=== PATIENT | female | born 1980 | race Caucasian/White ===

== ENCOUNTER 2017-11-10 13:25 | Emergency (ER) | payer MEDICARE, MEDICAID, SELFPAY ==
[2017-11-10 14:42] VITALS: BP 178/103; PULSE 86; RESP 18; TEMP 36.7; O2SAT 100; BMI 52.4
--- NOTE | 2017-11-10 15:55 | ED.PREGNANCY ---
HPI - <Roseline Cat PA-C - Last Filed: 11/10/17 22:35> General Chief complaint: OB/Uterine Contractions Stated complaint: 8wks and bleeding Time Seen by Provider: 11/10/17 15:54 Source: patient Mode of arrival: ambulatory Limitations: no limitations History of Present Illness HPI Narrative: This 37-year-old female comes to the ED due to and a mild abdominal/pelvic pressure sensation. She states that she is between 6 and 8 weeks , cannot remember when her last period was. She noted a small tinge of blood on toilet paper when she wiped this morning, then when she urinated this afternoon noted more blood when she wiped. She has not noted bleeding otherwise. She states for the last couple of days, she has actually had less nausea than usual with her . She describes a ???slight discomfort??? in the abdominal/pelvic area, not pain or cramps, but not quite typical. She has not had any vomiting today. She is not having any fever and has not had any recent illness. No new swelling and feeling otherwise okay, eating and drinking normally. She does have a history of lupus and 1 previous spontaneous , 2 term pregnancies Related Data Home Medications Medication Instructions Recorded Confirmed PNV cmb#95-ferrous fumarate-FA 1 tab PO DAILY 11/10/17 11/10/17 [] furosemide 2 tab PO DAILY 11/10/17 11/10/17 levothyroxine 1 tab PO DAILY 11/10/17 11/10/17 Allergies Allergy/AdvReac Type Severity Reaction Status Date / Time latex [LATEX] Allergy Unknown Rash Verified 11/10/17 14:46 Review of Systems <Roseline Cat PA-C - Last Filed: 11/10/17 22:35> Review of Systems All systems reviewed & are unremarkable except as noted in HPI and below PMFSH - <Roseline Cat PA-C - Last Filed: 11/10/17 22:35> Past Medical History Medical history: 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), thyroid disease and other Lupus Surgical history: 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) 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 HEENT: PERRL, EOMI NECK: Supple LUNGS: Clear to auscultation bilaterally. HEART: Rate and rhythm regular, normal S1 and S2, no S3 or S4. ABDOMEN: Soft, nontender, nondistended, bowel sounds present x 4 quadrants, no masses palpable EXTREMITIES: No edema, no cyanosis DERMATOLOGIC: No jaundice or exanthem NEUROLOGIC: Alert and oriented with normal speech and coordination : Normal external genitalia. There is a small amount of dark blood at the os. It is difficult to visualize fully due to body habitus, closed from what I can visualize. No palpable mass, CMT, uterine or adnexal tenderness Initial Vital Signs Initial Vital Signs: Vital Signs Temperature 98.1 F 11/10/17 14:42 Pulse Rate 86 11/10/17 14:42 Respiratory Rate 18 11/10/17 14:42 Blood Pressure 178/103 H 11/10/17 14:42 Pulse Oximetry 100 11/10/17 14:42 <DO Carrie Chua Last Filed: 11/11/17 07:50> Initial Vital Signs Initial Vital Signs: Vital Signs Temperature 98.1 F 11/10/17 14:42 Pulse Rate 86 11/10/17 14:42 Respiratory Rate 18 11/10/17 14:42 Blood Pressure 178/103 H 11/10/17 14:42 Pulse Oximetry 100 11/10/17 14:42 Course <Roseline Cat PA-C - Last Filed: 11/10/17 22:35> Orders Ordered: ED Orders 11/10/17 14:47 Urine Microscopic Stat 11/10/17 16:17 US OB <= 14 weeks fetus Stat 11/10/17 16:24 HCG Quantitative Stat Vital Signs - 8 hr 11/10/17 14:42 Temperature 98.1 F Pulse Rate 86 Respiratory Rate 18 Blood Pressure 178/103 H Pulse Oximetry 100 <DO Carrie Chua Last Filed: 11/11/17 07:50> Orders Ordered: ED Orders 11/10/17 14:47 Urine Microscopic Stat 11/10/17 16:17 US OB <= 14 weeks fetus Stat 11/10/17 16:24 HCG Quantitative Stat Vital Signs - 8 hr 11/10/17 14:42 Temperature 98.1 F Pulse Rate 86 Respiratory Rate 18 Blood Pressure 178/103 H Pulse Oximetry 100 MDM - OB/Uterine Contractions <Roseline Cat PA-C - Last Filed: 11/10/17 22:35> Lab Data Attestation: I reviewed the patient's lab results. Quantitative HCG 12,769 Lab Results 11/10/17 11/10/17 Range/Units 14:47 16:24 HCG, Quant [id number] mIU/mL Urine RBC 0-1/hpf (0-5/HPF) Urine WBC 0-1/hpf (0-5/HPF) Ur Squamous Epith Cells 1-5 /hpf Urine Bacteria Occasional (0-1) (None) Ur Culture Indicated? Cult not indicated Micro UA Comment Not Reportable Imaging Data US - abdomen: Radiologist's impression: View Report History [address] [address] Ultrasound Report Signed Patient: Leonor Castillo MR#: [id number] : 1980 Acct:[id number] Age/Sex: 37 / F Date of Service: 11/10/17 Loc: ED Accession Number: [id number] Procedure: US OB <= 14 weeks fetus Ordering Provider: Roseline Cat P.A-C PROCEDURE: US OB <= 14 WEEKS FETUS INDICATIONS: spotting, 6-8 wks OUTSIDE/PRIOR DATING DATA: Last menstrual period (LMP): Unknown. LMP-based estimated date of delivery (TANISHA): Not applicable. First dating scan (date and location): 11.10.17 [facility]. Estimated date of delivery (TANISHA) from first dating scan: 07.06.18. TECHNIQUE: Real-time scanning was performed of the fetus and maternal pelvic organs, with image documentation. COMPARISON: None. FINDINGS: Embryo: Intrauterine hypoechoic focus measuring 12 mm is present, corresponding to a 6 week 0 day gestation. No cardiac activity is seen. Measurement variability in dating: +/- 4 weeks by LMP, +/- 7 days by mean sac diameter (use before 6 weeks gestation if crown-rump length not able to be measured), +/- 5 days by crown-rump length (up to 8 weeks 6 days gestation), +/- 7 days by crown-rump length (up to 13 weeks 6 days gestation). Maternal organs: Left ovarian cyst is present. Right adnexa within normal limits. Limited images through the kidneys demonstrate no hydronephrosis. IMPRESSION: 1. Findings consistent with a single intrauterine gestation at 6 weeks 0 days. Routine clinical and sonographic followup is recommended to document viability. Dictated by: Ophelia Colon M.D. on 11/10/2017 at 17:43 Approved by: Ophelia Colon M.D. on 11/10/2017 at 17:45 <Atif Gonzalez DO - Last Filed: 11/11/17 07:50> Lab Data Lab Results 11/10/17 11/10/17 Range/Units 14:47 16:24 HCG, Quant [id number] mIU/mL Urine RBC 0-1/hpf (0-5/HPF) Urine WBC 0-1/hpf (0-5/HPF) Ur Squamous Epith Cells 1-5 /hpf Urine Bacteria Occasional (0-1) (None) Ur Culture Indicated? Cult not indicated Micro UA Comment Not Reportable Discharge Plan Departure Patient Disposition: Home, Self-Care Clinical Impression: Vaginal bleeding in Discharge Date/Time: 11/10/17 18:28 Interventions: ED Discharge Assessment Last Done: 11/10/17 18:22 Instructions: DI for Vaginal Bleeding During Activity Restrictions/Additional Instructions: Return to the closest ED as we talked about if you have any acutely worsening symptoms. Otherwise, you should call your theoretical physicist 1st thing tomorrow and be seen for follow-up. Your hormone level and ultrasound today looked typical for about a 6 week , however you need to be monitored closely. This bleeding may be normal but it can sometimes be a sign of early miscarriage as well. You were noted to have a cyst on your ovary today as well but that does not seem to be causing any problem or discomfort. Prescriptions: No Action furosemide 40 mg tablet 2 tab PO DAILY RF: 0 levothyroxine 200 mcg tablet 1 tab PO DAILY RF: 0 PNV cmb#95-ferrous fumarate-FA [] 28 mg iron- 800 mcg Tablet 1 tab PO DAILY RF: 0 Referrals: [facility] [Other] <Atif Gonzalez DO - Last Filed: 11/11/17 07:50> Cosign ED Attending Cosignature Attestation: I was available for consultation during this patient's emergency department encounter
--- NOTE | 2017-11-10 15:59 | ED_ITS ---
HPI - <Roseline Cat PA-C - Last Filed: 11/10/17 22:35> General Chief complaint: OB/Uterine Contractions Stated complaint: 8wks and bleeding Time Seen by Provider: 11/10/17 15:54 Source: patient Mode of arrival: ambulatory Limitations: no limitations History of Present Illness HPI Narrative: This 37-year-old female comes to the ED due to and a mild abdominal/pelvic pressure sensation. She states that she is between 6 and 8 weeks , cannot remember when her last period was. She noted a small tinge of blood on toilet paper when she wiped this morning, then when she urinated this afternoon noted more blood when she wiped. She has not noted bleeding otherwise. She states for the last couple of days, she has actually had less nausea than usual with her . She describes a ?slight discomfort? in the abdominal/pelvic area, not pain or cramps, but not quite typical. She has not had any vomiting today. She is not having any fever and has not had any recent illness. No new swelling and feeling otherwise okay, eating and drinking normally. She does have a history of lupus and 1 previous spontaneous , 2 term pregnancies Related Data Home Medications Medication Instructions Recorded Confirmed PNV cmb#95-ferrous fumarate-FA 1 tab PO DAILY 11/10/17 11/10/17 [] furosemide 2 tab PO DAILY 11/10/17 11/10/17 levothyroxine 1 tab PO DAILY 11/10/17 11/10/17 Allergies Allergy/AdvReac Type Severity Reaction Status Date / Time latex [LATEX] Allergy Unknown Rash Verified 11/10/17 14:46 Review of Systems <Roseline Cat PA-C - Last Filed: 11/10/17 22:35> Review of Systems All systems reviewed & are unremarkable except as noted in HPI and below PMFSH - <Roseline Cat PA-C - Last Filed: 11/10/17 22:35> Past Medical History Medical history: 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), thyroid disease and other Lupus Surgical history: 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) 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 HEENT: PERRL, EOMI NECK: Supple LUNGS: Clear to auscultation bilaterally. HEART: Rate and rhythm regular, normal S1 and S2, no S3 or S4. ABDOMEN: Soft, nontender, nondistended, bowel sounds present x 4 quadrants, no masses palpable EXTREMITIES: No edema, no cyanosis DERMATOLOGIC: No jaundice or exanthem NEUROLOGIC: Alert and oriented with normal speech and coordination : Normal external genitalia. There is a small amount of dark blood at the os. It is difficult to visualize fully due to body habitus, closed from what I can visualize. No palpable mass, CMT, uterine or adnexal tenderness Initial Vital Signs Initial Vital Signs: Vital Signs Temperature 98.1 F 11/10/17 14:42 Pulse Rate 86 11/10/17 14:42 Respiratory Rate 18 11/10/17 14:42 Blood Pressure 178/103 H 11/10/17 14:42 Pulse Oximetry 100 11/10/17 14:42 <DO Carrie Chua Last Filed: 11/11/17 07:50> Initial Vital Signs Initial Vital Signs: Vital Signs Temperature 98.1 F 11/10/17 14:42 Pulse Rate 86 11/10/17 14:42 Respiratory Rate 18 11/10/17 14:42 Blood Pressure 178/103 H 11/10/17 14:42 Pulse Oximetry 100 11/10/17 14:42 Course <Roseline Cat PA-C - Last Filed: 11/10/17 22:35> Orders Ordered: ED Orders 11/10/17 14:47 Urine Microscopic Stat 11/10/17 16:17 US OB <= 14 weeks fetus Stat 11/10/17 16:24 HCG Quantitative Stat Vital Signs - 8 hr 11/10/17 14:42 Temperature 98.1 F Pulse Rate 86 Respiratory Rate 18 Blood Pressure 178/103 H Pulse Oximetry 100 <DO Carrie Chua Last Filed: 11/11/17 07:50> Orders Ordered: ED Orders 11/10/17 14:47 Urine Microscopic Stat 11/10/17 16:17 US OB <= 14 weeks fetus Stat 11/10/17 16:24 HCG Quantitative Stat Vital Signs - 8 hr 11/10/17 14:42 Temperature 98.1 F Pulse Rate 86 Respiratory Rate 18 Blood Pressure 178/103 H Pulse Oximetry 100 MDM - OB/Uterine Contractions <Roseline Cat PA-C - Last Filed: 11/10/17 22:35> Lab Data Attestation: I reviewed the patient's lab results. Quantitative HCG 12,769 Lab Results 11/10/17 11/10/17 Range/Units 14:47 16:24 HCG, Quant [id number] mIU/mL Urine RBC 0-1/hpf (0-5/HPF) Urine WBC 0-1/hpf (0-5/HPF) Ur Squamous Epith Cells 1-5 /hpf Urine Bacteria Occasional (0-1) (None) Ur Culture Indicated? Cult not indicated Micro UA Comment Not Reportable Imaging Data US - abdomen: Radiologist's impression: View Report History [address] [address] Ultrasound Report Signed Patient: Leonor Castillo MR#: [id number] : 1980 Acct:[id number] Age/Sex: 37 / F Date of Service: 11/10/17 Loc: ED Accession Number: [id number] Procedure: US OB <= 14 weeks fetus Ordering Provider: Roseline Cat P.A-C PROCEDURE: US OB <= 14 WEEKS FETUS INDICATIONS: spotting, 6-8 wks OUTSIDE/PRIOR DATING DATA: Last menstrual period (LMP): Unknown. LMP-based estimated date of delivery (TANISHA): Not applicable. First dating scan (date and location): 11.10.17 [facility]. Estimated date of delivery (TANISHA) from first dating scan: 07.06.18. TECHNIQUE: Real-time scanning was performed of the fetus and maternal pelvic organs, with image documentation. COMPARISON: None. FINDINGS: Embryo: Intrauterine hypoechoic focus measuring 12 mm is present, corresponding to a 6 week 0 day gestation. No cardiac activity is seen. Measurement variability in dating: +/- 4 weeks by LMP, +/- 7 days by mean sac diameter (use before 6 weeks gestation if crown-rump length not able to be measured), +/ - 5 days by crown-rump length (up to 8 weeks 6 days gestation), +/- 7 days by crown-rump length (up to 13 weeks 6 days gestation). Maternal organs: Left ovarian cyst is present. Right adnexa within normal limits. Limited images through the kidneys demonstrate no hydronephrosis. IMPRESSION: 1. Findings consistent with a single intrauterine gestation at 6 weeks 0 days. Routine clinical and sonographic followup is recommended to document viability. Dictated by: Ophelia Colon M.D. on 11/10/2017 at 17:43 Approved by: Ophelia Colon M.D. on 11/10/2017 at 17:45 <Atif Gonzalez DO - Last Filed: 11/11/17 07:50> Lab Data Lab Results 11/10/17 11/10/17 Range/Units 14:47 16:24 HCG, Quant 10400 mIU/mL Urine RBC 0-1/hpf (0-5/HPF) Urine WBC 0-1/hpf (0-5/HPF) Ur Squamous Epith Cells 1-5 /hpf Urine Bacteria Occasional (0-1) (None) Ur Culture Indicated? Cult not indicated Micro UA Comment Not Reportable Discharge Plan Departure Patient Disposition: Home, Self-Care Clinical Impression: Vaginal bleeding in Discharge Date/Time: 11/10/17 18:28 Interventions: ED Discharge Assessment Last Done: 11/10/17 18:22 Instructions: DI for Vaginal Bleeding During Activity Restrictions/Additional Instructions: Return to the closest ED as we talked about if you have any acutely worsening symptoms. 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 Your hormone level and ultrasound today looked typical for about a 6 week , however you need to be monitored closely. This bleeding may be normal but it can sometimes be a sign of early miscarriage as well. You were noted to have a cyst on your ovary today as well but that does not seem to be causing any problem or discomfort. Prescriptions: No Action furosemide 40 mg tablet 2 tab PO DAILY RF: 0 levothyroxine 200 mcg tablet 1 tab PO DAILY RF: 0 PNV cmb#95-ferrous fumarate-FA [] 28 mg iron- 800 mcg Tablet 1 tab PO DAILY RF: 0 Referrals: [facility] [Other] <Atif Gonzalez DO - Last Filed: 11/11/17 07:50> Cosign ED Attending Brandonature Attestation: I was available for consultation during this patient's emergency department encounter
--- NOTE | 2017-11-10 16:17 | DI.US.S_ITS ---
PROCEDURE: US OB <= 14 WEEKS FETUS INDICATIONS: spotting, 6-8 wks OUTSIDE/PRIOR DATING DATA: Last menstrual period (LMP): Unknown. LMP-based estimated date of delivery (TANISHA): Not applicable. First dating scan (date and location): 11.10.17 [facility]. Estimated date of delivery (TANISHA) from first dating scan: 07.06.18. TECHNIQUE: Real-time scanning was performed of the fetus and maternal pelvic organs, with image documentation. COMPARISON: None. FINDINGS: Embryo: Intrauterine hypoechoic focus measuring 12 mm is present, corresponding to a 6 week 0 day gestation. No cardiac activity is seen. Measurement variability in dating: +/- 4 weeks by LMP, +/- 7 days by mean sac diameter (use before 6 weeks gestation if crown-rump length not able to be measured), +/- 5 days by crown-rump length (up to 8 weeks 6 days gestation), +/- 7 days by crown-rump length (up to 13 weeks 6 days gestation). Maternal organs: Left ovarian cyst is present. Right adnexa within normal limits. Limited images through the kidneys demonstrate no hydronephrosis. IMPRESSION: 1. Findings consistent with a single intrauterine gestation at 6 weeks 0 days. Routine clinical and sonographic followup is recommended to document viability. Dictated by: Ophelia Colon M.D. on 11/10/2017 at 17:43 Approved by: Ophelia Colon M.D. on 11/10/2017 at 17:45
[2017-11-10 18:04] LABS: Bacteria Urine Occasional (0-1); Culture Indicated Urine Cult Not Indicated; RBC Urine 0-1/HPF (0-5/HPF); Squamous Epithelial Cell Urine 1-5 /HPF; WBC Urine 0-1/HPF (0-5/HPF)
[2017-11-11 16:51] LABS: HCG Quantitative /Beta subunit 12769 mIU/mL
== END 2017-11-10 18:28 | disposition home or self-care (01) ==
PROVIDERS: Emergency Provider Internal Medicine
DX: O46.90 Antepartum hemorrhage, unspecified, unspecified trimester (principal); Z3A.01 Less than 8 weeks gestation of pregnancy
CPT/HCPCS: 36415; 76801; 76817; 81003; 81015; 81025; 84702; 99283; 99284

== ENCOUNTER 2017-11-26 18:38 | Emergency (ER) | payer MEDICARE, MEDICAID, SELFPAY ==
[2017-11-26 18:54] VITALS: BP 157/99; PULSE 81; RESP 16; TEMP 36.6; O2SAT 100; BMI 52.4
--- NOTE | 2017-11-26 19:40 | ED.PREGNANCY ---
HPI - <ORLY Mata - Last Filed: 11/26/17 21:11> General Chief complaint: OB/Uterine Contractions Stated complaint: 8WKS AND EXPERIENCING BLEEDING Time Seen by Provider: 11/26/17 19:30 Source: patient Mode of arrival: ambulatory Limitations: no limitations History of Present Illness HPI Narrative: pt says she was here about 2 weeks ago for same thing, no f/u yet, her ob won't see her until she is further along MD Complaint: vaginal bleeding Onset (ago): day(s) (yesterday) Pain Consistency: other (no pain) Relieving factors: none Exacerbating factors: none Associated symptoms: denies other symptoms Vaginal discharge: none Vaginal bleeding: light (bright red, spotting, only sees it when she wipes) Hx Last Menstrual Period: about 8 wks ago Patient : Yes Number of Weeks : 8 OB History - Current : no complications OB History - Previous Pregnancies: no complications care: none (first appt in 2 wks) Related Data : 5 Para: 4 Home Medications Medication Instructions Recorded Confirmed PNV cmb#95-ferrous fumarate-FA 1 tab PO DAILY 11/10/17 11/10/17 [] furosemide 2 tab PO DAILY 11/10/17 11/10/17 levothyroxine 1 tab PO DAILY 11/10/17 11/26/17 See Protocol PO DAILY 11/26/17 11/26/17 labetalol 200 mg PO BID 11/26/17 11/26/17 Allergies Allergy/AdvReac Type Severity Reaction Status Date / Time latex [LATEX] Allergy Unknown Rash Verified 11/10/17 14:46 Review of Systems <ORLY Mata - Last Filed: 11/26/17 21:11> Review of Systems All systems reviewed & are unremarkable except as noted in HPI and below Constitutional Reports system reviewed and no additional complaints, except as docu, Denies chills, Denies fever(s), Denies lethargy and Denies weakness Cardiovascular Denies chest pain, Denies irregular heart rhythm, Denies lightheadedness, Denies palpitations, Denies dyspnea and Denies dyspnea on exertion Respiratory Denies cough, Denies dyspnea, Denies dyspnea on exertion and Denies wheezing Gastrointestinal Gastrointestinal: Denies abdominal pain, Denies diarrhea, Denies nausea and Denies vomiting Genitourinary Reports as per HPI, Reports abnormal vaginal bleeding, Denies hematuria, Reports urinary frequency, Denies difficulty voiding, Denies flank pain, Denies urinary incontinence and Denies urinary urgency Musculoskeletal Denies back pain Neurologic Denies weakness Psychiatric Denies anxiety, Denies depression, Denies homicidal ideation and Denies suicidal ideation Endocrine Denies palpitations Hematologic/Lymphatic Denies easy bruising Allergic/Immunologic Denies wheezing PMFSH - <ORLY Mata - Last Filed: 11/26/17 21:11> Past Medical History Medical history: 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), thyroid disease and other Lupus Surgical history: 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) Hx Last Menstrual Period: about 8 wks ago Patient : Yes Exam <ORLY Mata - Last Filed: 11/26/17 21:11> Initial Vital Signs Initial Vital Signs: Vital Signs Temperature 98 F 11/26/17 18:54 Pulse Rate 81 11/26/17 18:54 Respiratory Rate 16 11/26/17 18:54 Blood Pressure 157/99 H 11/26/17 18:54 Pulse Oximetry 100 11/26/17 18:54 Const General: cooperative, healthy appearing, comfortable, well developed, No ill appearing, No intoxicated appearing and well hydrated Nutritional Appearance: well nourished and obese morbidly obese Orientation: alert, awake, oriented x3 and not confused [facility] Head: normocephalic and atraumatic Ears: external ears normal Nose: external nose normal and No nasal discharge Face and sinus: sinuses nontender and face symmetric Mouth: oral mucosae normal and moist mucous membranes Teeth and gingiva: dentition normal Eyes General: appearance normal, both eyes and all related structures Eyelids: eyelids normal Conjunctivae: conjunctivae normal Sclera: sclerae normal Pupils: PERRL EOM: EOM intact bilaterally Neck Neck: normal visual inspection, full ROM, trachea midline and supple Chest Chest: normal inspection of the chest Resp Effort & Inspection: normal respiratory effort, able to speak in complete sentences, no respiratory distress and no use of accessory muscles Auscultation: clear to auscultation bilaterally, no rales, no rhonchi and no wheezes Cardio Rate: regular rate Rhythm: regular rhythm Heart Sounds: no click, no gallops, no murmurs and no rubs Pulses: normal peripheral pulses GI Inspection: non-distended Palpation: soft, no hepatosplenomegaly, No guarding, No pulsatile mass and No tender Auscultation: normal bowel sounds External Female Exam: external appearance normal and normal appearance of the urethra Speculum Exam - Vagina: normal appearance of the vagina, normal vaginal discharge, No vaginal bleeding, No tissue present in vagina and other (vagina totally clear of any bleeding or blood) Speculum Exam - Cervix: normal appearance of the cervix, No cervical os open, closed cervix and normal vervical discharge OB/External & Speculum: no tissue noted in vagina, No cervical os open and No vaginal bleeding Other: DESIRAE Thompson at bedside during pelvic exam Back/Spine/Pelvis Back: normal to inspection and No CVA tenderness Cervical Spine: cervical ROM normal and No pain with cervical ROM Thoracic/Lumbar Spine: thoracic and lumbar spine normal to inspection Skin General: no rashes or lesions noted, No jaundice and No petechiae Neuro General: alert, oriented x3, gait normal and no focal motor deficits Speech: speech normal Extrem General: full ROM, no clubbing, cyanosis or edema, no pedal edema and no calf tenderness Psych Appearance: well kempt Mental Status: mental status grossly normal Attitude: cooperative Thought Content: normal and suicidality Judgment: judgment good <Lesley Swift DO - Last Filed: 11/27/17 04:37> Initial Vital Signs Initial Vital Signs: Vital Signs Temperature 98 F 11/26/17 18:54 Pulse Rate 81 11/26/17 18:54 Respiratory Rate 16 11/26/17 18:54 Blood Pressure 157/99 H 11/26/17 18:54 Pulse Oximetry 100 11/26/17 18:54 Procedures <ORLY Mata - Last Filed: 11/26/17 21:11> Number of Weeks : 8 Course <ORLY Mata - Last Filed: 11/26/17 21:11> Orders Ordered: ED Orders 11/26/17 19:45 Complete Blood Count AUTO DIFF Stat Comprehensive Metabolic Panel Stat HCG Quantitative Stat Reevaluation(s) Reevaluation #1: results and dc plan discussed, pt has vitamins and doesn't need any more, f/u with ob in 2 weeks as scheduled Time: 21:00 Vital Signs - 8 hr 11/26/17 21:24 Temperature 98.2 F Pulse Rate 85 Respiratory Rate 16 Blood Pressure 149/84 H Pulse Oximetry 100 <Lesley Swift DO - Last Filed: 11/27/17 04:37> Orders Ordered: ED Orders 11/26/17 19:45 Complete Blood Count AUTO DIFF Stat Comprehensive Metabolic Panel Stat HCG Quantitative Stat Vital Signs - 8 hr 11/26/17 21:24 Temperature 98.2 F Pulse Rate 85 Respiratory Rate 16 Blood Pressure 149/84 H Pulse Oximetry 100 MDM - OB/Uterine Contractions <Isha Jonny, PRODUCT STEWARD - Last Filed: 11/26/17 21:11> Differential Diagnosis Likely other (miscarriage, ectopic, dysfunctional uterine bleed, uti) Medical Records Attestation: I reviewed the patient's medical records. other er chart reviewed and quant at that time was 12,769, US showed 6w iup Lab Data Attestation: I reviewed the patient's lab results. Result diagrams: 11/26/17 19:45 11/26/17 19:45 Lab Results 11/26/17 11/26/17 Range/Units 19:45 19:45 WBC 12.0 H (4.5-11.0) X10^3/uL RBC 4.41 (4.0-5.2) X10^6/uL Hgb 12.4 (12.0-16.0) g/dL Hct 36.4 (36-46) % MCV 82.6 (80-100) fL MCH 28.2 (26-34) PG MCHC 34.2 (30-36) % RDW 14.2 (11.6-14.8) % Plt Count 373 (150-400) X10^3/uL Neut % (Auto) 73.0 (50-75) % Lymph % (Auto) 16.1 L (25-40) % [place] % (Auto) 7.7 (3-14) % Eos % (Auto) 1.9 L (2-4) % Baso % (Auto) 1.3 (0-2) % Neut # (Auto) 8700 H (0580-3838) /uL Sodium 140 (137-145) mmol/L Potassium 3.6 (3.4-5.1) mmol/L Chloride 100 (98-107) mmol/L Carbon Dioxide 26 (22-32) mmol/L BUN 24 H (7-17) mg/dL Creatinine 1.30 H (0.52-1.04) mg/dL Estimated GFR 45.6 L (>60) mL/min BUN/Creatinine Ratio 18.5 (6-22) Glucose 92 (70-100) mg/dL Calcium 9.2 (8.4-10.2) mg/dL Total Bilirubin 0.3 (0.2-1.3) mg/dL AST 21 (14-36) IU/L ALT 15 (9-52) IU/L Alkaline Phosphatase 70 (38-126) U/L Total Protein 7.6 (6.3-8.2) g/dL Albumin 4.0 (3.5-5.0) g/dL Globulin 3.6 (1.7-4.1) g/dL Albumin/Globulin Ratio 1.1 (1.0-2.8) HCG, Quant 79505 mIU/mL <Lesley Swift DO - Last Filed: 11/27/17 04:37> Lab Data Lab Results 11/26/17 11/26/17 Range/Units 19:45 19:45 WBC 12.0 H (4.5-11.0) X10^3/uL RBC 4.41 (4.0-5.2) X10^6/uL Hgb 12.4 (12.0-16.0) g/dL Hct 36.4 (36-46) % MCV 82.6 (80-100) fL MCH 28.2 (26-34) PG MCHC 34.2 (30-36) % RDW 14.2 (11.6-14.8) % Plt Count 373 (150-400) X10^3/uL Neut % (Auto) 73.0 (50-75) % Lymph % (Auto) 16.1 L (25-40) % [place] % (Auto) 7.7 (3-14) % Eos % (Auto) 1.9 L (2-4) % Baso % (Auto) 1.3 (0-2) % Neut # (Auto) 8700 H (1857-9640) /uL Sodium 140 (137-145) mmol/L Potassium 3.6 (3.4-5.1) mmol/L Chloride 100 (98-107) mmol/L Carbon Dioxide 26 (22-32) mmol/L BUN 24 H (7-17) mg/dL Creatinine 1.30 H (0.52-1.04) mg/dL Estimated GFR 45.6 L (>60) mL/min BUN/Creatinine Ratio 18.5 (6-22) Glucose 92 (70-100) mg/dL Calcium 9.2 (8.4-10.2) mg/dL Total Bilirubin 0.3 (0.2-1.3) mg/dL AST 21 (14-36) IU/L ALT 15 (9-52) IU/L Alkaline Phosphatase 70 (38-126) U/L Total Protein 7.6 (6.3-8.2) g/dL Albumin 4.0 (3.5-5.0) g/dL Globulin 3.6 (1.7-4.1) g/dL Albumin/Globulin Ratio 1.1 (1.0-2.8) HCG, Quant 46995 mIU/mL Imaging Data Pelvic ultrasound: Radiologist's impression: PROCEDURE: CT ABDOMEN PELVIS W CON INDICATIONS: 60 year-old female with left lower quadrant abdominal pain. TECHNIQUE: After the administration of intravenous contrast, 5 mm thick sections acquired from the diaphragm to the symphysis. 5 mm coronal and sagittal reformats were acquired. For radiation dose reduction, the following was used: automated exposure control, adjustment of mA and/or kV according to patient size. COMPARISON: None. FINDINGS: Image quality: Excellent. ABDOMEN: Lung bases: Lung bases are clear, except for a 5 mm posterior left lung base calcified granuloma on image 19. Heart size is normal. There is small retrocardiac hiatal hernia. Solid organs: Liver is normal in size and enhancement. Gallbladder is surgically absent. Biliary system is non dilated. Pancreas enhances normally. Spleen is normal in size and enhancement. No adrenal nodules. Kidneys demonstrate normal size and enhancement, without hydronephrosis. Peritoneum and bowel: Bowel loops demonstrate normal wall thickness and caliber. There is mild sigmoid colon diverticulosis. No free fluid or air. Nodes and vessels: No retroperitoneal or mesenteric adenopathy by size criteria. Aorta and inferior vena cava are normal in size, with minimal aortic atherosclerosis. Miscellaneous: No ventral hernias. PELVIS: Genitourinary: The bladder is near empty at the time of scan. Uterus is surgically absent. The ovaries are not seen, and may be surgically absent as well. Miscellaneous: No inguinal hernias or adenopathy. Bones: No suspicious bony lesions. No acute vertebral body compression fractures. There is non-acute T11 anterior wedge compression fracture, with 42% height loss. There is lower lumbar spine disc degeneration. IMPRESSION: 1. Mild sigmoid colon diverticulosis, without acute diverticulitis. 2. Small retrocardiac hiatal hernia. 3. Nonacute T11 anterior wedge compression fracture. Dictated by: Thony Kinney M.D. on 11/26/2017 at 21:17 Discharge Plan Departure Patient Disposition: Home, Self-Care Clinical Impression: Abnormal vaginal bleeding Discharge Date/Time: 11/26/17 21:25 Interventions: ED Discharge Assessment Last Done: 11/26/17 21:24 Instructions: DI for Vaginal Bleeding During Prescriptions: No Action furosemide 40 mg tablet 2 tab PO DAILY RF: 0 levothyroxine 200 mcg tablet 1 tab PO DAILY RF: 0 PNV cmb#95-ferrous fumarate-FA [] 28 mg iron- 800 mcg Tablet 1 tab PO DAILY RF: 0 labetalol 200 mg PO BID RF: 0 capsule PO DAILY RF: 0 Referrals: Angie Prather MD [Physician] - (with your [employer] as scheduled or this provider, or another in 3-5 days)
--- NOTE | 2017-11-26 19:51 | ED_ITS ---
HPI - <ORLY Mata - Last Filed: 11/26/17 21:11> General Chief complaint: OB/Uterine Contractions Stated complaint: 8WKS AND EXPERIENCING BLEEDING Time Seen by Provider: 11/26/17 19:30 Source: patient Mode of arrival: ambulatory Limitations: no limitations History of Present Illness HPI Narrative: pt says she was here about 2 weeks ago for same thing, no f/u yet , her ob won't see her until she is further along MD Complaint: vaginal bleeding Onset (ago): day(s) (yesterday) Pain Consistency: other (no pain) Relieving factors: none Exacerbating factors: none Associated symptoms: denies other symptoms Vaginal discharge: none Vaginal bleeding: light (bright red, spotting, only sees it when she wipes) Hx Last Menstrual Period: about 8 wks ago Patient : Yes Number of Weeks : 8 OB History - Current : no complications OB History - Previous Pregnancies: no complications care: none (first appt in 2 wks) Related Data : 5 Para: 4 Home Medications Medication Instructions Recorded Confirmed PNV cmb#95-ferrous fumarate-FA 1 tab PO DAILY 11/10/17 11/10/17 [] furosemide 2 tab PO DAILY 11/10/17 11/10/17 levothyroxine 1 tab PO DAILY 11/10/17 11/26/17 See Protocol PO DAILY 11/26/17 11/26/17 labetalol 200 mg PO BID 11/26/17 11/26/17 Allergies Allergy/AdvReac Type Severity Reaction Status Date / Time latex [LATEX] Allergy Unknown Rash Verified 11/10/17 14:46 Review of Systems <ORLY Mata - Last Filed: 11/26/17 21:11> Review of Systems All systems reviewed & are unremarkable except as noted in HPI and below Constitutional Reports system reviewed and no additional complaints, except as docu, Denies chills, Denies fever(s), Denies lethargy and Denies weakness Cardiovascular Denies chest pain, Denies irregular heart rhythm, Denies lightheadedness, Denies palpitations, Denies dyspnea and Denies dyspnea on exertion Respiratory Denies cough, Denies dyspnea, Denies dyspnea on exertion and Denies wheezing Gastrointestinal Gastrointestinal: Denies abdominal pain, Denies diarrhea, Denies nausea and Denies vomiting Genitourinary Reports as per HPI, Reports abnormal vaginal bleeding, Denies hematuria, Reports urinary frequency, Denies difficulty voiding, Denies flank pain, Denies urinary incontinence and Denies urinary urgency Musculoskeletal Denies back pain Neurologic Denies weakness Psychiatric Denies anxiety, Denies depression, Denies homicidal ideation and Denies suicidal ideation Endocrine Denies palpitations Hematologic/Lymphatic Denies easy bruising Allergic/Immunologic Denies wheezing PMFSH - <ORLY Mata - Last Filed: 11/26/17 21:11> Past Medical History Medical history: 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), thyroid disease and other Lupus Surgical history: 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) Hx Last Menstrual Period: about 8 wks ago Patient : Yes Exam <ORLY Mata - Last Filed: 11/26/17 21:11> Initial Vital Signs Initial Vital Signs: Vital Signs Temperature 98 F 11/26/17 18:54 Pulse Rate 81 11/26/17 18:54 Respiratory Rate 16 11/26/17 18:54 Blood Pressure 157/99 H 11/26/17 18:54 Pulse Oximetry 100 11/26/17 18:54 Const General: cooperative, healthy appearing, comfortable, well developed, No ill appearing, No intoxicated appearing and well hydrated Nutritional Appearance: well nourished and obese morbidly obese Orientation: alert, awake, oriented x3 and not confused [facility] Head: normocephalic and atraumatic Ears: external ears normal Nose: external nose normal and No nasal discharge Face and sinus: sinuses nontender and face symmetric Mouth: oral mucosae normal and moist mucous membranes Teeth and gingiva: dentition normal Eyes General: appearance normal, both eyes and all related structures Eyelids: eyelids normal Conjunctivae: conjunctivae normal Sclera: sclerae normal Pupils: PERRL EOM: EOM intact bilaterally Neck Neck: normal visual inspection, full ROM, trachea midline and supple Chest Chest: normal inspection of the chest Resp Effort & Inspection: normal respiratory effort, able to speak in complete sentences, no respiratory distress and no use of accessory muscles Auscultation: clear to auscultation bilaterally, no rales, no rhonchi and no wheezes Cardio Rate: regular rate Rhythm: regular rhythm Heart Sounds: no click, no gallops, no murmurs and no rubs Pulses: normal peripheral pulses GI Inspection: non-distended Palpation: soft, no hepatosplenomegaly, No guarding, No pulsatile mass and No tender Auscultation: normal bowel sounds External Female Exam: external appearance normal and normal appearance of the urethra Speculum Exam - Vagina: normal appearance of the vagina, normal vaginal discharge, No vaginal bleeding, No tissue present in vagina and other (vagina totally clear of any bleeding or blood) Speculum Exam - Cervix: normal appearance of the cervix, No cervical os open, closed cervix and normal vervical discharge OB/External & Speculum: no tissue noted in vagina, No cervical os open and No vaginal bleeding Other: DESIRAE Thompson at bedside during pelvic exam Back/Spine/Pelvis Back: normal to inspection and No CVA tenderness Cervical Spine: cervical ROM normal and No pain with cervical ROM Thoracic/Lumbar Spine: thoracic and lumbar spine normal to inspection Skin General: no rashes or lesions noted, No jaundice and No petechiae Neuro General: alert, oriented x3, gait normal and no focal motor deficits Speech: speech normal Extrem General: full ROM, no clubbing, cyanosis or edema, no pedal edema and no calf tenderness Psych Appearance: well kempt Mental Status: mental status grossly normal Attitude: cooperative Thought Content: normal and suicidality Judgment: judgment good <Lesley Swift DO - Last Filed: 11/27/17 04:37> Initial Vital Signs Initial Vital Signs: Vital Signs Temperature 98 F 11/26/17 18:54 Pulse Rate 81 11/26/17 18:54 Respiratory Rate 16 11/26/17 18:54 Blood Pressure 157/99 H 11/26/17 18:54 Pulse Oximetry 100 11/26/17 18:54 Procedures <ORLY Mata - Last Filed: 11/26/17 21:11> Number of Weeks : 8 Course <ORLY Mata - Last Filed: 11/26/17 21:11> Orders Ordered: ED Orders 11/26/17 19:45 Complete Blood Count AUTO DIFF Stat Comprehensive Metabolic Panel Stat HCG Quantitative Stat Reevaluation(s) Reevaluation #1: results and dc plan discussed, pt has vitamins and doesn't need any more, f/u with ob in 2 weeks as scheduled Time: 21:00 Vital Signs - 8 hr 11/26/17 21:24 Temperature 98.2 F Pulse Rate 85 Respiratory Rate 16 Blood Pressure 149/84 H Pulse Oximetry 100 <Lesley Swift DO - Last Filed: 11/27/17 04:37> Orders Ordered: ED Orders 11/26/17 19:45 Complete Blood Count AUTO DIFF Stat Comprehensive Metabolic Panel Stat HCG Quantitative Stat Vital Signs - 8 hr 11/26/17 21:24 Temperature 98.2 F Pulse Rate 85 Respiratory Rate 16 Blood Pressure 149/84 H Pulse Oximetry 100 MDM - OB/Uterine Contractions <Isha Jonny, ENVIRONMENTAL COMPLIANCE MANAGER - Last Filed: 11/26/17 21:11> Differential Diagnosis Likely other (miscarriage, ectopic, dysfunctional uterine bleed, uti) Medical Records Attestation: I reviewed the patient's medical records. other er chart reviewed and quant at that time was 12,769, US showed 6w iup Lab Data Attestation: I reviewed the patient's lab results. Result diagrams: 11/26/17 19:45 11/26/17 19:45 Lab Results 11/26/17 11/26/17 Range/Units 19:45 19:45 WBC 12.0 H (4.5-11.0) X10^3/uL RBC 4.41 (4.0-5.2) X10^6/uL Hgb 12.4 (12.0-16.0) g/dL Hct 36.4 (36-46) % MCV 82.6 (80-100) fL MCH 28.2 (26-34) PG MCHC 34.2 (30-36) % RDW 14.2 (11.6-14.8) % Plt Count 373 (150-400) X10^3/uL Neut % (Auto) 73.0 (50-75) % Lymph % (Auto) 16.1 L (25-40) % [place] % (Auto) 7.7 (3-14) % Eos % (Auto) 1.9 L (2-4) % Baso % (Auto) 1.3 (0-2) % Neut # (Auto) 8700 H (8968-4995) /uL Sodium 140 (137-145) mmol/L Potassium 3.6 (3.4-5.1) mmol/L Chloride 100 (98-107) mmol/L Carbon Dioxide 26 (22-32) mmol/L BUN 24 H (7-17) mg/dL Creatinine 1.30 H (0.52-1.04) mg/dL Estimated GFR 45.6 L (>60) mL/min BUN/Creatinine Ratio 18.5 (6-22) Glucose 92 (70-100) mg/dL Calcium 9.2 (8.4-10.2) mg/dL Total Bilirubin 0.3 (0.2-1.3) mg/dL AST 21 (14-36) IU/L ALT 15 (9-52) IU/L Alkaline Phosphatase 70 (38-126) U/L Total Protein 7.6 (6.3-8.2) g/dL Albumin 4.0 (3.5-5.0) g/dL Globulin 3.6 (1.7-4.1) g/dL Albumin/Globulin Ratio 1.1 (1.0-2.8) HCG, Quant 00885 mIU/mL <Lesley Swift DO - Last Filed: 11/27/17 04:37> Lab Data Lab Results 11/26/17 11/26/17 Range/Units 19:45 19:45 WBC 12.0 H (4.5-11.0) X10^3/uL RBC 4.41 (4.0-5.2) X10^6/uL Hgb 12.4 (12.0-16.0) g/dL Hct 36.4 (36-46) % MCV 82.6 (80-100) fL MCH 28.2 (26-34) PG MCHC 34.2 (30-36) % RDW 14.2 (11.6-14.8) % Plt Count 373 (150-400) X10^3/uL Neut % (Auto) 73.0 (50-75) % Lymph % (Auto) 16.1 L (25-40) % [place] % (Auto) 7.7 (3-14) % Eos % (Auto) 1.9 L (2-4) % Baso % (Auto) 1.3 (0-2) % Neut # (Auto) 8700 H (7099-5145) /uL Sodium 140 (137-145) mmol/L Potassium 3.6 (3.4-5.1) mmol/L Chloride 100 (98-107) mmol/L Carbon Dioxide 26 (22-32) mmol/L BUN 24 H (7-17) mg/dL Creatinine 1.30 H (0.52-1.04) mg/dL Estimated GFR 45.6 L (>60) mL/min BUN/Creatinine Ratio 18.5 (6-22) Glucose 92 (70-100) mg/dL Calcium 9.2 (8.4-10.2) mg/dL Total Bilirubin 0.3 (0.2-1.3) mg/dL AST 21 (14-36) IU/L ALT 15 (9-52) IU/L Alkaline Phosphatase 70 (38-126) U/L Total Protein 7.6 (6.3-8.2) g/dL Albumin 4.0 (3.5-5.0) g/dL Globulin 3.6 (1.7-4.1) g/dL Albumin/Globulin Ratio 1.1 (1.0-2.8) HCG, Quant 17911 mIU/mL Imaging Data Pelvic ultrasound: Radiologist's impression: PROCEDURE: CT ABDOMEN PELVIS W CON INDICATIONS: 60 year-old female with left lower quadrant abdominal pain. TECHNIQUE: After the administration of intravenous contrast, 5 mm thick sections acquired from the diaphragm to the symphysis. 5 mm coronal and sagittal reformats were acquired. For radiation dose reduction, the following was used: automated exposure control, adjustment of mA and/or kV according to patient size. COMPARISON: None. FINDINGS: Image quality: Excellent. ABDOMEN: Lung bases: Lung bases are clear, except for a 5 mm posterior left lung base calcified granuloma on image 19. Heart size is normal. There is small retrocardiac hiatal hernia. Solid organs: Liver is normal in size and enhancement. Gallbladder is surgically absent. Biliary system is non dilated. Pancreas enhances normally. Spleen is normal in size and enhancement. No adrenal nodules. Kidneys demonstrate normal size and enhancement, without hydronephrosis. Peritoneum and bowel: Bowel loops demonstrate normal wall thickness and caliber. There is mild sigmoid colon diverticulosis. No free fluid or air. Nodes and vessels: No retroperitoneal or mesenteric adenopathy by size criteria. Aorta and inferior vena cava are normal in size, with minimal aortic atherosclerosis. Miscellaneous: No ventral hernias. PELVIS: Genitourinary: The bladder is near empty at the time of scan. Uterus is surgically absent. The ovaries are not seen, and may be surgically absent as well. Miscellaneous: No inguinal hernias or adenopathy. Bones: No suspicious bony lesions. No acute vertebral body compression fractures. There is non-acute T11 anterior wedge compression fracture, with 42% height loss. There is lower lumbar spine disc degeneration. IMPRESSION: 1. Mild sigmoid colon diverticulosis, without acute diverticulitis. 2. Small retrocardiac hiatal hernia. 3. Nonacute T11 anterior wedge compression fracture. Dictated by: Thony Kinney M.D. on 11/26/2017 at 21:17 Discharge Plan Departure Patient Disposition: Home, Self-Care Clinical Impression: Abnormal vaginal bleeding Discharge Date/Time: 11/26/17 21:25 Interventions: ED Discharge Assessment Last Done: 11/26/17 21:24 Instructions: DI for Vaginal Bleeding During Prescriptions: No Action furosemide 40 mg tablet 2 tab PO DAILY RF: 0 levothyroxine 200 mcg tablet 1 tab PO DAILY RF: 0 PNV cmb#95-ferrous fumarate-FA [] 28 mg iron- 800 mcg Tablet 1 tab PO DAILY RF: 0 labetalol 200 mg PO BID RF: 0 capsule PO DAILY RF: 0 Referrals: Angie Prather MD [Physician] - (with your CHAIR [employer]ER as scheduled or this provider, or another in 3-5 days)
[2017-11-26 20:01] LABS: Add Manual Diff / Slide Review NO; Basophils Percent Auto 1.3 % (0-2); Eosinophils Percent Auto 1.9 % (2-4); Hematocrit 36.4 % (36-46); Hemoglobin 12.4 g/dL (12.0-16.0); Lymphocytes Percent Auto 16.1 % (25-40); Mean Corpuscular HGB Conc 34.2 % (30-36); Mean Corpuscular Hemoglobin 28.2 PG (26-34); Mean Corpuscular Volume 82.6 fL (80-100); Monocytes Percent Auto 7.7 % (3-14); Neutrophils Absolute Auto 8700 /uL (3000-5900); Platelet Count 373 X10^3/uL (150-400); Red Blood Cell Count 4.41 X10^6/uL (4.0-5.2); Red Cell Distribution Width 14.2 % (11.6-14.8)
[2017-11-26 20:08] LABS: Alanine Aminotransferase 15 IU/L (9-52); Albumin Globulin Ratio 1.1 (1.0-2.8); Alkaline Phosphatase 70 U/L (38-126); Aspartate Aminotransferase 21 IU/L (14-36); BUN Creatinine Ratio 18.5 (6-22); Bilirubin Total 0.3 mg/dL (0.2-1.3); Blood Urea Nitrogen 24 mg/dL (7-17); Calcium 9.2 mg/dL (8.4-10.2); Carbon Dioxide 26 mmol/L (22-32); Chloride 100 mmol/L (98-107); Estimated Glomerular Filt Rate 45.6 mL/min (>60); Globulin 3.6 g/dL (1.7-4.1); Glucose 92 mg/dL (70-100); Potassium 3.6 mmol/L (3.4-5.1); Sodium 140 mmol/L (137-145); Total Protein 7.6 g/dL (6.3-8.2)
[2017-11-26 20:49] LABS: HEMOLYSIS 38 (0-50)
[2017-11-26 20:59] LABS: HCG Quantitative /Beta subunit 96722 mIU/mL
[2017-11-26 21:24] VITALS: BP 149/84; PULSE 85; RESP 16; TEMP 36.8; O2SAT 100
== END 2017-11-26 21:25 | disposition home or self-care (01) ==
PROVIDERS: Emergency Provider Nurse Practitioner
DX: O20.9 Hemorrhage in early pregnancy, unspecified (principal); Z3A.08 8 weeks gestation of pregnancy
CPT/HCPCS: 80053; 84702; 85025; 99282; 99283

== ENCOUNTER → 2019-03-24 09:32 | Outpatient (CLI) | payer MEDICARE, MEDICAID, SELFPAY ==
[2019-03-24 10:19] LABS: Add Manual Diff / Slide Review NO; Basophils Absolute Auto 100 /uL (0-100); Basophils Percent Auto 0.9 % (0-2); Eosinophils Absolute Auto 500 /uL (0-450); Hematocrit 37.9 % (36-46); Hemoglobin 13.3 g/dL (12.0-16.0); Lymphocytes Absolute Auto 1700 /uL (1100-4500); Lymphocytes Percent Auto 18.9 % (25-40); Mean Corpuscular HGB Conc 35.1 % (30-36); Mean Corpuscular Hemoglobin 28.9 PG (26-34); Mean Corpuscular Volume 82.6 fL (80-100); Monocytes Absolute Auto 600 /uL (0-900); Monocytes Percent Auto 6.7 % (3-14); Neutrophils Absolute Auto 6200 /uL (1500-7000); Neutrophils Percent Auto 67.5 % (50-75); Platelet Count 322 X10^3/uL (150-400); Red Blood Cell Count 4.59 X10^6/uL (4.0-5.2); Red Cell Distribution Width 13.9 % (11.6-14.8); White Blood Cell Count 9.2 X10^3/uL (4.5-11.0)
[2019-03-24 10:42] LABS: Alanine Aminotransferase 15 IU/L (9-52); Albumin 3.6 g/dL (3.5-5.0); Albumin Globulin Ratio 1.2 (1.0-2.8); Alkaline Phosphatase 73 U/L (38-126); Aspartate Aminotransferase 16 IU/L (14-36); BUN Creatinine Ratio 13.6 (6-22); Bilirubin Total 0.3 mg/dL (0.2-1.3); Blood Urea Nitrogen 19 mg/dL (7-17); Calcium 8.8 mg/dL (8.4-10.2); Carbon Dioxide 26 mmol/L (22-32); Chloride 105 mmol/L (98-107); Cholesterol 226 mg/dL (140-199); Estimated Glomerular Filt Rate 41.6 mL/min (>60); Glucose 86 mg/dL (70-100); HDL Cholesterol 51 mg/dL (40-60); HEMOLYSIS < 15 (0-50); LDL Cholesterol Calculated 131 mg/dL (<100); Potassium 4.9 mmol/L (3.4-5.1); Sodium 138 mmol/L (137-145); Total Protein 6.6 g/dL (6.3-8.2); Triglycerides 221 mg/dL (35-150)
[2019-03-24 11:10] LABS: Thyroid Stimulating Hormone 1.49 uIU/mL (0.47-4.68)
== END ==
PROVIDERS: PCP Hospitalist; Visit Provider Hospitalist
DX: E03.9 Hypothyroidism, unspecified (principal); I10 Essential (primary) hypertension
CPT/HCPCS: 36415; 80053; 80061; 84443; 85025